=== PATIENT | male | born 1975 | race African-American/Black ===

== ENCOUNTER 2024-08-02 14:01 | Emergency (ER) | payer SELFPAY ==
[~2024-08-02] VITALS: Ht 172.7 cm; Wt 70.0 kg
[2024-08-02 14:03] VITALS: O2SAT 100
[2024-08-02 15:57] LABS: CHLORIDE 111 mEq/L (98-107); POTASSIUM 4.5 mEq/L (3.5-5.1); SODIUM 143 mEq/L (136-145)
[2024-08-02 15:59] LABS: CALCIUM 9.4 mg/dL (8.7-10.4); CARBON DIOXIDE 32 mEq/L (21-32)
[2024-08-02 16:04] LABS: CREATININE 1.2 mg/dL (0.6-1.3); GLUCOSE 59 mg/dL (70-105); UREA NITROGEN BLOOD 14 mg/dL (9-23)
[2024-08-02 16:15] LABS: BASOPHILS % 1.2 % (0.0-2.0); DIFFERENTIAL COMMENT 0; EOSINOPHILS % 2.6 % (0.0-5.0); HEMATOCRIT. 41.2 % (42.0-52.0); HEMOGLOBIN. 13.3 g/dL (14.0-18.0); LYMPHOCYTES % 32.1 % (20.0-50.0); MEAN CORPUSCULAR HEMOGLOBIN 29.9 pg (28.0-32.0); MEAN CORPUSCULAR HGB CONC 32.2 g/dL (31.0-37.0); MEAN CORPUSCULAR VOLUME 92.7 fL (80.0-94.0); MONOCYTES % 9.1 % (2.0-8.0); PLATELET 217 x1000/uL (130-400); RED BLOOD CELL COUNT 4.44 mill/uL (4.7-6.1); RED CELL DISTRIBUTION WIDTH 13.7 % (11.6-14.6); WHITE BLOOD COUNT 9.1 x1000/uL (4.5-11.0)
[2024-08-02 16:16] LABS: TROPONIN I HIGH SENSITIVITY < 4 ng/L (3.0-53)
[2024-08-02 16:57] VITALS: BP 119/84; PULSE 58; RESP 16; TEMP 37.05852; O2SAT 100
== END 2024-08-02 16:59 | disposition home or self-care (01) ==
LOC: ER 14:27
DX: R07.89 Other chest pain (principal)
CPT/HCPCS: 36415; 71045; 80048; 84484; 85025; 93005; 99285